=== PATIENT | female | born 1975 | race Caucasian/White ===

== ENCOUNTER 2020-06-02 11:19 | Emergency (ER) | payer MEDICAID ==
[~2020-06-02] VITALS: Ht 160 cm; Wt 89.5 kg
[~2020-06-02 11:19] MED LIST: ASPI-1071 PO; ATOR20TA66 PO; CLOP75TA34 PO; LISI10TA27 PO; METO50TA16 PO; NITR0.4T51 SL; NOR5T PO; PROP40TA7 PO
[2020-06-02 11:50] LABS: BASOPHILS % (AUTO) 0.6 % (0-1); EOSINOPHILS # (AUTO) 0.1 X10'3 (0-0.9); EOSINOPHILS % (AUTO) 2.2 % (0-6); HEMATOCRIT 44.7 % (35.0-45.0); HEMOGLOBIN 14.7 g/dl (12.0-16.0); LYMPHOCYTES # (AUTO) 1.7 X10'3 (1.1-4.8); MEAN CORPUSCULAR HEMOGLOBIN 28.7 PG (27.0-31.0); MEAN PLATELET VOLUME 7.2 FL (7.4-10.4); MONOCYTES # (AUTO) 0.4 X10'3 (0-0.9); MONOCYTES % (AUTO) 5.1 % (2-12); NEUTROPHILS # (AUTO) 4.6 X10'3 (1.8-7.7); NEUTROPHILS % (AUTO) 67.1 % (42-75); PLATELET COUNT 364 X10'3 (140-440); RED BLOOD COUNT 5.14 X10'6 (4.20-5.60); RED CELL DISTRIBUTION WIDTH 13.9 % (11.5-14.5); WHITE BLOOD COUNT 6.8 X10'3 (4.5-11.0)
[2020-06-02 12:04] LABS: ALANINE AMINOTRANSFERASE 22 U/L (12-78); ALBUMIN 3.6 G/DL (3.4-5.0); ALBUMIN/GLOBULIN RATIO 0.9 (1.1-1.5); ALKALINE PHOSPHATASE 50 IU/L (46-116); ANION GAP 14 (8-16); ASPARTATE AMINO TRANSFERASE 13 U/L (10-37); BILIRUBIN,TOTAL 0.3 MG/DL (0.1-1.0); BLOOD UREA NITROGEN 15 MG/DL (7-18); BUN/CREATININE RATIO 17.9 (6.6-38.0); CALCIUM 9.1 MG/DL (8.5-10.1); CHLORIDE 105 MMOL/L (99-107); CREATININE 0.84 MG/DL (0.40-0.90); GLUCOSE 173 MG/DL (70-104); POTASSIUM 4.3 MMOL/L (3.5-5.1); SODIUM 140 MMOL/L (135-145); TOTAL CARBON DIOXIDE 21.1 MMOL/L (24-32); TOTAL PROTEIN 7.5 G/DL (6.4-8.2); eGFR 73 ML/MIN
[2020-06-02] MEDS ORDERED: ondansetron/PF 4mg/2ml inj IV ONE (13:35)
[2020-06-02] MEDS ORDERED: morphine 4 MG/ML inj SYRINge IV PRN (13:35)
[2020-06-02] MEDS ORDERED: sucralfate 1 gm tablet PO ONE (13:40)
[2020-06-02] MEDS ORDERED: mag hydrox/Alum hydrox/simeth 30ml oral suspension PO ONE (13:40)
[2020-06-02] MEDS ORDERED: LIDOcaine Viscous 15ml cup MM ONE (13:40)
[2020-06-02] MEDS: nitroGLYCERIN 0.4mg SUBLingual tab SL PRN ×3 (13:50→14:49)
--- NOTE | 2020-06-02 14:43 | NUR ---
1ST NTG GIVEN 0.4MG PAIN 8 DOWN TO A 6/10. 2ND NTG GIVEN, 0.4MG PAIN 6 DOWN TO 5/10
[2020-06-02 15:42] VITALS: BP 129/79
== END 2020-06-02 16:13 | disposition home or self-care (01) ==
LOC: ER 11:19
DX: R07.89 Other chest pain (principal); M79.604 Pain in right leg; R06.02 Shortness of breath; I73.9 Peripheral vascular disease, unspecified; M79.605 Pain in left leg; I10 Essential (primary) hypertension; I25.2 Old myocardial infarction; F17.200 Nicotine dependence, unspecified, uncomplicated; F15.90 Other stimulant use, unspecified, uncomplicated; Z90.710 Acquired absence of both cervix and uterus; Z72.89 Other problems related to lifestyle; Z88.0 Allergy status to penicillin; Z79.82 Long term (current) use of aspirin; Z79.899 Other long term (current) drug therapy
CPT/HCPCS: 36415; 71045; 80053; 84484; 85025; 93005; 96374; 96375; 99285; J2270; J2405

== ENCOUNTER 2024-05-12 16:42 | Emergency (ER) | payer MEDICAID ==
[~2024-05-12] VITALS: Ht 162.6 cm; Wt 77.9 kg
[2024-05-12 16:52] VITALS: TEMP 97.8
[2024-05-12 17:20] LABS: BASOPHILS % (AUTO) 0.3 % (0-1); EOSINOPHILS # (AUTO) 0.1 X10'3 (0-0.9); EOSINOPHILS % (AUTO) 0.6 % (0-6); HEMATOCRIT 50.6 % (35.0-45.0); HEMOGLOBIN 17.2 g/dl (12.0-16.0); LYMPHOCYTES # (AUTO) 1.8 X10'3 (1.1-4.8); LYMPHOCYTES % (AUTO) 15.6 % (21-51); MEAN CORPUSCULAR HEMOGLOBIN 29.1 PG (27.0-31.0); MEAN CORPUSCULAR HGB CONC 33.9 g/dL (33.0-36.5); MEAN CORPUSCULAR VOLUME 85.8 FL (78-98); MEAN PLATELET VOLUME 7.2 FL (7.4-10.4); MONOCYTES # (AUTO) 0.8 X10'3 (0-0.9); MONOCYTES % (AUTO) 6.7 % (2-12); NEUTROPHILS % (AUTO) 76.8 % (42-75); PLATELET COUNT 393 X10'3 (140-440); RED CELL DISTRIBUTION WIDTH 14.3 % (11.5-14.5); WHITE BLOOD COUNT 11.7 X10'3 (4.5-11.0)
[2024-05-12 17:37] LABS: ALANINE AMINOTRANSFERASE 30 U/L (12-78); ALBUMIN 4.6 G/DL (3.4-5.0); ALBUMIN/GLOBULIN RATIO 1.2 (1.1-1.5); ALKALINE PHOSPHATASE 59 IU/L (46-116); ANION GAP 14 (8-16); ASPARTATE AMINO TRANSFERASE 28 U/L (10-37); BILIRUBIN,TOTAL 0.9 MG/DL (0.1-1.0); BLOOD UREA NITROGEN 13 MG/DL (7-18); BUN/CREATININE RATIO 15.5 (10.0-20.0); CALCIUM 10.5 MG/DL (8.5-10.1); CHLORIDE 101 MMOL/L (99-107); CREATININE 0.84 MG/DL (0.40-0.90); GLUCOSE 103 MG/DL (70-104); POTASSIUM 3.9 MMOL/L (3.5-5.1); SODIUM 139 MMOL/L (135-145); TOTAL CARBON DIOXIDE 23.8 MMOL/L (24-32); TOTAL PROTEIN 8.5 G/DL (6.4-8.2); eCRCL 69 ML/MIN; eGFR 72 ML/MIN
[2024-05-12 17:43] LABS: AMYLASE 64 U/L (25-115); LIPASE 25 U/L (16-77)
[2024-05-12 17:55] LABS: PRO BRAIN NATRIURETIC PEPTIDE < 30 PG/ML (0-125)
[2024-05-12 21:06] VITALS: BP 163/97; PULSE 93; RESP 16; O2SAT 98
[2024-05-12] MEDS: LIDOcaine 2% Viscous 15ml cup MM PRN (21:06)
[2024-05-12] MEDS: mag hydrox/Alum hydrox/simeth 30ml oral suspension PO ONE (21:06)
== END 2024-05-12 21:33 | disposition home or self-care (01) ==
LOC: ER 16:43
DX: R11.2 Nausea with vomiting, unspecified (principal); R10.13 Epigastric pain; E78.5 Hyperlipidemia, unspecified; I10 Essential (primary) hypertension; F15.90 Other stimulant use, unspecified, uncomplicated; Z88.0 Allergy status to penicillin; Z90.710 Acquired absence of both cervix and uterus; Z95.5 Presence of coronary angioplasty implant and graft
CPT/HCPCS: 36415; 71045; 80053; 82150; 83690; 83880; 84484; 85025; 93005; 99285